=== PATIENT | female | born 1945 | race Caucasian/White ===

== ENCOUNTER 2020-01-03 10:13 | Emergency (ER) | payer MEDICARE, OTHER, SELFPAY ==
--- NOTE | ~2020-01-03 | XR_ITS ---
XR ankle LT min 3V 01/03/2020 11:00 INDICATION: Left ankle pain and swelling PROCEDURE: 4 views left ankle COMPARISON: No prior studies for comparison. FINDINGS: Fracture, dislocation or subluxation is not identified. Ankle mortise intact. There is a sm all degenerative calcaneal enthesophyte. The soft tissues appear within normal limits. No foreign garcía dies are identified. IMPRESSION: 1: NO ACUTE BONE OR JOINT ABNORMALITY IDENTIFIED. Reviewed, dictated and finalized at location B.
[2020-01-03 10:23] VITALS: BP 132/77; PULSE 90; RESP 16; TEMP 36.2; O2SAT 100
--- NOTE | 2020-01-03 11:38 | ED.LOWEXIN ---
HPI - Extremity Injury (Lower) General Chief Complaint: Extremity Injury, Lower Stated Complaint: INJURED L ANKLE Source: patient and RN notes reviewed Limitations: no limitations History of Present Illness HPI Narrative: The patient, previously on several meds, presents with left ankle discomfort. Patient states she has at least a weeklong history of left, lateral ankle pain that is mild, worse with motion, better at rest, and seem to occur when she was moving her disabled . No bleeding, deformity, prior known injury Related Data Home Medications Medication Instructions Recorded Confirmed alprazolam 01/03/20 alprazolam 01/03/20 01/03/20 atorvastatin 01/03/20 budesonide-formoterol [Symbicort] INHALATION 01/03/20 cyclobenzaprine mg 01/03/20 duloxetine mg PO 01/03/20 hydroxyzine HCl 01/03/20 levothyroxine 01/03/20 mirtazapine mg 01/03/20 omeprazole 01/03/20 ropinirole mg 01/03/20 ropinirole mg 01/03/20 trazodone 01/03/20 trimethoprim 01/03/20 Allergies Allergy/AdvReac Type Severity Reaction Status Date / Time clarithromycin Allergy Mild Unknown Verified 01/03/20 10:33 cortisone Allergy Unknown Verified 01/03/20 10:33 pneumococcal vaccine Allergy Unknown Verified 01/03/20 10:33 prednisone Allergy Unknown Verified 01/03/20 10:33 varicella virus vaccine live Allergy Unknown Verified 01/03/20 10:33 FLU VACCINE [id number] (3 YR Allergy Unknown Unknown Uncoded 01/03/20 10:33 +) WARFARIN SODIUM Allergy Unknown Unknown Uncoded 01/03/20 10:33 Review of Systems Review of Systems: Narrative: General/Constitutional: No weight loss,fever Eyes: N0: Redness,discharge Ears/Nose/Throat: No: Epistaxis,ear discharge Respiratory: Denies: Hemoptysis Gastrointestinal: No Vomiting, Bleeding-rectal Skin: No Lumps, eruption Neurologic: No Focal Weakness,Sz Hematologic: Denies: Petechiae/Purpura Psychiatric: No: Suicida ideationl All Other Systems: Reviewed and Negative PMFSH Comments At time of signature, agree with nursing past medical, surgical, social and family history. There is no relevant family history pertinent to the presenting complaint Exam Narrative: Exam Narrative: General Appearance: Well appearing, Conjunctiva clear Ears: External ear normal, Auditory canal normal Nose: Normal nose, Nares clear Mouth/Throat: Normal appearing, Normal lips Supple Respiratory: Airway patent, No respiratory distress Musculoskeletal: Normal strength (mostly intact, limited flexion/extension by pain), Tenderness ( laterally, with mild decreased ROM), Swelling (laterally), Other (no anterior drawer, no collateral laxity, no Achilles tenderness, no fifth MT tenderness) Skin: Warm, Dry, Normal color Neurological: A&O x3,Normal affect Course Vital Signs Vital signs: Vital Signs Temperature 97.1 F L 01/03/20 10:23 Pulse Rate 90 01/03/20 10:23 Respiratory Rate 16 01/03/20 10:23 Blood Pressure 132/77 01/03/20 10:23 Pulse Oximetry 100 01/03/20 10:23 Temperature 97.1 F L 01/03/20 10:23 Pulse Rate 90 01/03/20 10:23 Respiratory Rate 16 01/03/20 10:23 Blood Pressure 132/77 01/03/20 10:23 Pulse Oximetry 100 01/03/20 10:23 Discharge Plan Discharge Clinical Impression: Left ankle sprain Qualifiers: Encounter type: initial encounter Involved ligament of ankle: unspecified ligament Qualified Code(s): S93.402A - Sprain of unspecified ligament of left ankle, initial encounter Degenerative joint disease of ankle Qualifiers: Osteoarthritis type: primary Laterality: left Qualified Code(s): M19.072 - Primary osteoarthritis, left ankle and foot Patient Disposition: Home, Self-Care Condition: Stable Instructions: Ankle Sprain (ED) Prescriptions: New acetaminophen-codeine 120 mg-12 mg /5 mL (5 mL) solution 5 ml PO Q8H PRN (Reason: pain) Qty: 200 RF: 0 No Action alprazolam 1 mg tablet RF: 0 cyclobenzaprine 10 mg tablet RF
== END 2020-01-03 11:25 | disposition home or self-care (01) ==
PROVIDERS: Emergency Provider Emergency Medicine
DX: S93.402A Sprain of unspecified ligament of left ankle, initial encounter (principal); X58.XXXA Exposure to other specified factors, initial encounter; M19.072 Primary osteoarthritis, left ankle and foot; E03.9 Hypothyroidism, unspecified; F41.9 Anxiety disorder, unspecified
CPT/HCPCS: 73610; 99213; G0463

== ENCOUNTER → 2020-04-20 14:45 | Outpatient (CLI) | payer MEDICARE, SELFPAY ==
--- NOTE | ~2020-04-20 | XR_ITS ---
EXAMINATION: XR chest 2V EXAM DATE: 04/20/2020 15:03 INDICATION: Cough. TECHNIQUE: Frontal and lateral projections of the chest obtained and reviewed. There is no prior gen dy for comparison. FINDINGS: The lungs are clear. There are no pleural effusions. The cardiomediastinal silhouette is within normal limits. There is no pneumothorax suspected. Moderate thoracolumbar scoliosis. There a re cholecystectomy clips. IMPRESSION: No acute cardiopulmonary findings. Reviewed, dictated and finalized at location B. [employer]
== END ==
DX: R05 Cough (principal)
CPT/HCPCS: 71046

== ENCOUNTER 2021-02-13 13:22 | Emergency (ER) | payer MEDICARE, OTHER, SELFPAY ==
--- NOTE | ~2021-02-13 | XR_ITS ---
EXAMINATION: XR chest 2V EXAM DATE: 02/13/2021 13:58 INDICATION: Cough and wheezing. TECHNIQUE: Frontal and lateral projections of the chest obtained and reviewed. Comparison is made to prior examination from 04/20/2020. FINDINGS: Moderate amount of right-sided, smaller amount of left basilar acute airspace disease new compared to previous examination, pneumonia and/or edema. Please clinically correlate. There is no pn eumothorax suspected. Cardiomediastinal silhouette is normal. There is moderate thoracolumbar scolio sis. There are cholecystectomy clips. IMPRESSION: Moderate right-sided, small left basilar acute airspace disease. Consider pneumonia and/o r edema. Reviewed, dictated and finalized at location A. 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 Co nsider pneumonia and/or edema.
[2021-02-13 13:35] VITALS: BP 155/56; PULSE 108; RESP 18; TEMP 36.4; O2SAT 91
--- NOTE | 2021-02-13 13:39 | ED.URI ---
HPI - URI/Sore Throat General Chief Complaint: Upper Respiratory Infection Stated Complaint: COUGH/WHEEZING Time Seen by Provider: 02/13/21 13:50 Source: patient and RN notes reviewed Mode of arrival: ambulatory Limitations: no limitations History of Present Illness HPI Narrative: 75-year-old female with history of asthma presents concern for 1 week history of increased cough, shortness of breath, wheezing, body aches, fatigue. She reports she has not been vaccinated for Covid and has had an exposure. Reports she last used her albuterol nebulizer this morning. She denies chest pain, back pain, or diaphoresis MD elicited complaint: cough and sore throat Related Data Home Medications Medication Instructions Recorded Confirmed alprazolam 1 mg PO QID 01/03/20 02/13/21 atorvastatin 80 mg PO DAILY 01/03/20 02/13/21 budesonide-formoterol [Symbicort] 1 puff INHALATION DAILY 01/03/20 02/13/21 duloxetine 60 mg PO DAILY 01/03/20 02/13/21 hydroxyzine HCl 25 mg PO DAILY 01/03/20 02/13/21 levothyroxine 75 mcg PO DAILY 01/03/20 02/13/21 mirtazapine 45 mg PO DAILY 01/03/20 02/13/21 ropinirole 1 mg PO HS 01/03/20 02/13/21 ropinirole 2 mg PO HS 01/03/20 02/13/21 trazodone 50 mg PO HS 01/03/20 02/13/21 pantoprazole 40 mg PO DAILY 02/13/21 02/13/21 Allergies Allergy/AdvReac Type Severity Reaction Status Date / Time clarithromycin Allergy Mild Unknown Verified 02/13/21 13:31 cortisone Allergy Unknown Verified 02/13/21 13:31 pneumococcal vaccine Allergy Unknown Verified 02/13/21 13:31 prednisone Allergy Unknown Verified 02/13/21 13:31 varicella virus vaccine live Allergy Unknown Verified 02/13/21 13:31 FLU VACCINE [id number] (3 YR Allergy Unknown Unknown Uncoded 02/13/21 13:31 +) WARFARIN SODIUM Allergy Unknown Unknown Uncoded 02/13/21 13:31 Review of Systems Review of Systems: CONSTITUTIONAL: Reports malaise fatigue. Denies chills, sweats, or fever. EYES: Denies visual changes, redness, or discharge. ENT: Reports rhinorrhea. Denies congestion, sinus pain, otalgia and sore throat. CARDIOVASCULAR: Denies chest pain, palpitations, or edema. RESPIRATORY: Reports cough, wheezing, dyspnea. GASTROINTESTINAL: Denies abdominal pain, nausea, vomiting, diarrhea SKIN: Denies rash or itching. MUSCULOSKELETAL: Reports myalgia. NEUROLOGIC: Denies headache. All systems reviewed & are unremarkable except as noted in HPI and below PMFSH Comments At time of signature, agree with nursing past medical, surgical, social and family history. There is no relevant family history pertinent to the presenting complaint Exam Narrative: GENERAL: Well-appearing, well-nourished, and in no acute distress. HEAD: Normocephalic EYES: PERRLA, conjunctivae clear ENT: Nares clear, clear discharge. Mucous membranes moist. TM pearly de oliveira with dull light reflex bilaterally; no tragal tenderness. Oropharynx not erythematous without lesions. Tonsils not enlarged and without exudate, no drooling, no hoarseness, no trismus, uvula midline. NECK: Supple. No lymphadenopathy CHEST: Inspiratory and expiratory wheeze, rhonchi throughout, breath sounds diminished on the right. Aeration fair. No rales, or stridor. No respiratory distress, speaks in full sentences. HEART: Regular rate and rhythm. No murmur heard. SKIN: Warm, dry, no rash. NEURO: Alert and oriented x3. PSYCH: Normal mood and affect Course Course Emergency Course: Patient reports she is not allergic to prednisone, however it makes her crazy . Reports doctor has recommended she take a baby dose, which she tolerates. Patient is aware of diagnosis, understands and agrees to treatment plan. Anticipatory guidance given. Patient agrees to follow-up as directed and is aware of reasons to seek care at the emergency department. Portions of this record may have been created with voice recognition software Reevaluation(s) Reevaluation #1: No improvement in Spo2, wheezing, dyspnea after duoneb. Discussed transfer to ED with
[2021-02-13] MEDS: ALBUTEROL SULFATE NEB 2.5 MG/3 ML INH INHALATION (14:05)
[2021-02-13] MEDS: IPRATROPIUM BR 0.02% INH SOLN 0.5 MG/2.5 ML VIAL INHALATION (14:06)
[2021-02-13 14:30] VITALS: PULSE 105; RESP 20; O2SAT 89
[2021-02-13 15:00] VITALS: PULSE 95; RESP 20; O2SAT 90
--- NOTE | 2021-02-13 15:17 | PC.NURSE ---
1515 After report given, Rn returned call to advise family that if patient's condition would deteriorate they should go to nearest facility. I spoke to Georgia Meyer and given advice from RN. She states that I don't think I could get her in an ambulance and I will be taking her.
== END 2021-02-13 15:00 | disposition short-term general hospital (02) ==
PROVIDERS: Emergency Provider Nurse Practitioner
DX: J18.9 Pneumonia, unspecified organism (principal); Z20.822 Contact with and (suspected) exposure to COVID-19
CPT/HCPCS: 71046; 87426; 94640; 99213; C9803; G0463

== ENCOUNTER 2021-07-24 13:33 | Emergency (ER) | payer MEDICARE, OTHER, SELFPAY ==
--- NOTE | ~2021-07-24 | XR_ITS ---
EXAMINATION: XR chest 2V DATE: 07/24/2021 13:52 INDICATION: Shortness of breath TECHNIQUE: PA and lateral views of the chest are obtained. COMPARISON: 02/13/2021 FINDINGS: The lungs are free of acute opacities. There is no pleural effusion or pneumothorax. The ca rdiomediastinal silhouette is normal. There is a large hiatal hernia. There is mild thoracic spondylo sis. Surgical clips in the right upper quadrant are likely from prior cholecystectomy. IMPRESSION: 1. No acute cardiopulmonary abnormality. 2. Large hiatal hernia. Reviewed, dictated and finalized at location A.
[2021-07-24 13:40] VITALS: BP 129/59; PULSE 97; RESP 18; TEMP 36.2; O2SAT 98
--- NOTE | 2021-07-24 14:02 | ED.URI ---
HPI - URI/Sore Throat General Chief Complaint: Upper Respiratory Infection Stated Complaint: SOB Time Seen by Provider: 07/24/21 14:00 Source: patient, family, RN notes reviewed and old records reviewed Mode of arrival: ambulatory Limitations: no limitations History of Present Illness HPI Narrative: 75 year old female accompanied by granddaughter who presents to [facility] care with complaints of long history of asthma and chronic lung problems and pneumonia in the past 6 months requiring hospitalization. Patient reports that she was in the hospital about 3 weeks ago at [facility] with kidney infection and she had small CVA. Patient had home therapist at her home today and patient states that she thought she should come and get checked out.Her PCP called in some antibiotics yesterday but they don't seem to be helping yet, she has been using her nebulizer, temperature of 100F noted one night last week no recent fever, states cough has increased in past 2 weeks. MD elicited complaint: cough Pertinent past history: pneumonia and asthma Related Data Home Medications Medication Instructions Recorded Confirmed alprazolam 1 mg PO QID 01/03/20 02/13/21 atorvastatin 80 mg PO DAILY 01/03/20 02/13/21 budesonide-formoterol [Symbicort] 1 puff INHALATION DAILY 01/03/20 02/13/21 duloxetine 60 mg PO DAILY 01/03/20 02/13/21 hydroxyzine HCl 25 mg PO DAILY 01/03/20 02/13/21 levothyroxine 75 mcg PO DAILY 01/03/20 02/13/21 mirtazapine 45 mg PO DAILY 01/03/20 02/13/21 ropinirole 1 mg PO HS 01/03/20 02/13/21 ropinirole 2 mg PO HS 01/03/20 02/13/21 trazodone 50 mg PO HS 01/03/20 02/13/21 pantoprazole 40 mg PO DAILY 02/13/21 02/13/21 Keppra 07/24/21 Requip 07/24/21 Allergies Allergy/AdvReac Type Severity Reaction Status Date / Time clarithromycin Allergy Mild Unknown Verified 02/13/21 13:31 cortisone Allergy Unknown Verified 02/13/21 13:31 pneumococcal vaccine Allergy Unknown Verified 02/13/21 13:31 prednisone Allergy Unknown Verified 02/13/21 13:31 varicella virus vaccine live Allergy Unknown Verified 02/13/21 13:31 FLU VACCINE [id number] (3 YR Allergy Unknown Unknown Uncoded 02/13/21 13:31 +) WARFARIN SODIUM Allergy Unknown Unknown Uncoded 02/13/21 13:31 Review of Systems Review of Systems: CONSTITUTIONAL: Denies present fever, chills, or sweats. EYES: Denies visual changes, redness, or discharge. ENT: Denies rhinorrhea, congestion, sore throat, or otalgia. CARDIOVASCULAR: Denies chest pain, palpitations, or edema. RESPIRATORY: Positive for cough or dyspnea. GASTROINTESTINAL: Denies abdominal pain, nausea, vomiting, or diarrhea. GENITOURINARY: Denies dysuria or hematuria. SKIN: Denies rash or itching. MUSCULOSKELETAL: Denies back pain, joint pain, or myalgia. NEUROLOGIC: Denies headache, numbness, or weakness. PSYCHIATRIC: Positive for anxiety or depression. 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 Hypercholesterolemia Hypertension Hypothyroidism Seizures Surgical History Surgical History (Updated 07/24/21 @ 17:55 by Clari Pinzon NP) History of bladder surgery sling for bladder History of right hip replacement History of tonsillectomy History of total bilateral knee replacement Hx of appendectomy Hx of cataract surgery bilateral Hx of cholecystectomy Social History Social History (Updated 07/24/21 @ 17:51 by Clari Pinzon NP) Smoking status: Never smoker Alcohol intake: unknown Substance use: never Substance use type: does not use Gender identity (if verbalized by the patient): Female Comments At time of signature, agree with nursing past medical, surgical, social and family history. There is no relevant family history pertinent to the presenting complai
== END 2021-07-24 14:25 | disposition home or self-care (01) ==
PROVIDERS: Emergency Provider Registered Nurse
DX: R05.9 Cough, unspecified (principal); J06.9 Acute upper respiratory infection, unspecified; J45.909 Unspecified asthma, uncomplicated; E78.00 Pure hypercholesterolemia, unspecified; I10 Essential (primary) hypertension; E03.9 Hypothyroidism, unspecified; G40.909 Epilepsy, unspecified, not intractable, without status epilepticus; Z86.73 Personal history of transient ischemic attack (TIA), and cerebral infarction without residual deficits; Z96.653 Presence of artificial knee joint, bilateral; Z96.641 Presence of right artificial hip joint; F41.9 Anxiety disorder, unspecified
CPT/HCPCS: 71046; 99213; G0463

== ENCOUNTER 2023-08-15 12:23 | Emergency (ER) | payer MEDICARE, SELFPAY ==
[2023-08-15 12:43] VITALS: BP 146/78; PULSE 78; RESP 16; TEMP 37.1; O2SAT 99
--- NOTE | 2023-08-15 13:14 | ED.GENADULT ---
HPI - General Adult General Chief complaint: Skin/Abscess/Foreign Body Stated complaint: right arm cut Source: patient Mode of arrival: ambulatory Limitations: no limitations History of Present Illness HPI narrative: Patient presents for evaluation after experiencing a fall 7 days ago. She indicates she was at home and was attempting to sit down but thought the chair was closer to her. She fell to the ground landed on her back. She did not hit her head. No loss of consciousness. She is not anticoagulated. She does skin tear to the right forearm. She has been applying Neosporin. She now reports worsening redness in the right arm. Reports 8/10 pain in the right arm. Denies any concerns for fracture. Over the last 5 days she has had some periods of dizziness and lightheadedness. She cannot identify any aggravating or alleviating factors. She cannot provide me with the longest duration of time in which she each episode occurs but states that symptoms do last at least 1 minute. Symptoms occur her approximately 3 times per day. She denies any chest pain or shortness of breath. Denies any other infectious symptoms. Related Data Home Medications Medication Instructions Recorded Confirmed alprazolam 1 mg tablet 1 mg PO QID 01/03/20 02/13/21 atorvastatin 80 mg tablet 80 mg PO DAILY 01/03/20 02/13/21 budesonide-formoterol HFA 160 1 puff inhalation DAILY 01/03/20 02/13/21 mcg-4.5 mcg/actuation aerosol inhaler (Symbicort) duloxetine 60 mg capsule,delayed 60 mg PO DAILY 01/03/20 02/13/21 release hydroxyzine HCl 25 mg tablet 25 mg PO DAILY 01/03/20 02/13/21 levothyroxine 75 mcg tablet 75 mcg PO DAILY 01/03/20 02/13/21 mirtazapine 45 mg tablet 45 mg PO DAILY 01/03/20 02/13/21 ropinirole 1 mg tablet 1 mg PO HS 01/03/20 02/13/21 ropinirole 2 mg tablet 2 mg PO HS 01/03/20 02/13/21 trazodone 50 mg tablet 50 mg PO HS 01/03/20 02/13/21 pantoprazole 40 mg tablet,delayed 40 mg PO DAILY 02/13/21 02/13/21 release Keppra 07/24/21 Requip 07/24/21 Allergies Allergy/AdvReac Type Severity Reaction Status Date / Time clarithromycin Allergy Mild Unknown Verified 02/13/21 13:31 cortisone Allergy Unknown Verified 02/13/21 13:31 pneumococcal vaccine Allergy Unknown Verified 02/13/21 13:31 prednisone Allergy Unknown Verified 02/13/21 13:31 varicella virus vaccine live Allergy Unknown Verified 02/13/21 13:31 FLU VACCINE [id number] (3 YR Allergy Unknown Unknown Uncoded 02/13/21 13:31 +) WARFARIN SODIUM Allergy Unknown Unknown Uncoded 02/13/21 13:31 Review of Systems Review of Systems: CONSTITUTIONAL: Denies fever, chills, or sweats. EYES: Denies visual changes, redness, or discharge. ENT: Denies rhinorrhea, congestion, sore throat, or otalgia. CARDIOVASCULAR: Denies chest pain, palpitations, or edema. RESPIRATORY: Denies cough or dyspnea. GASTROINTESTINAL: Denies abdominal pain, nausea, vomiting, or diarrhea. GENITOURINARY: Denies dysuria or hematuria. SKIN: Reports a wound to the right forearm. MUSCULOSKELETAL: Reports pain in the right arm. NEUROLOGIC: Reports periods of dizziness and lightheadedness. Denies any headache. PSYCHIATRIC: Denies anxiety or depression. 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
== END 2023-08-15 13:12 | disposition left against medical advice (07) ==
PROVIDERS: Emergency Provider Nurse Practitioner
DX: S50.811A Abrasion of right forearm, initial encounter (principal); W19.XXXA Unspecified fall, initial encounter; R42 Dizziness and giddiness; J45.909 Unspecified asthma, uncomplicated; E78.00 Pure hypercholesterolemia, unspecified; I10 Essential (primary) hypertension; E03.9 Hypothyroidism, unspecified; F41.9 Anxiety disorder, unspecified
CPT/HCPCS: 99213; G0463

== ENCOUNTER 2024-03-10 15:59 | Emergency (ER) | payer MEDICARE, SELFPAY ==
--- NOTE | ~2024-03-10 | XR_ITS ---
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 RESULT: Lines, tubes, and devices: Cholecystectomy clips. Lungs and pleura: Clear. Cardiomediastinal silhouette: Stable. Hiatal hernia. Other: No acute osseous or upper abdominal finding. IMPRESSION: No acute cardiopulmonary process. Reviewed, dictated and finalized at location K. [employer] ESTATE ATTORNEY
[2024-03-10 16:13] VITALS: BP 129/61; PULSE 89; RESP 20; TEMP 36.6; O2SAT 95
--- NOTE | 2024-03-10 17:03 | ED.URI ---
HPI - URI/Sore Throat General Chief Complaint: Upper Respiratory Infection Stated Complaint: cough Time Seen by Provider: 03/10/24 17:03 Source: patient, RN notes reviewed and old records reviewed Mode of arrival: ambulatory Limitations: no limitations History of Present Illness HPI Narrative: 78-year-old female presents to the [facility] with complaints of increased shortness of breath since 4 days. Has been using her Symbicort twice a day. Patient is concerned for RSV, discussed that we are not able to test for here in clinic. Doing x-ray due to patient's wheezing. Patient also reports intermittent chest discomfort, worse with coughing. States that when she lays flat she cannot breathe. Patient reports that she is allergic to prednisone. Treatments prior to arrival: other (Inhaler) Related Data Home Medications ?Medication ?Instructions ?Recorded ?Confirmed ?Last Taken ?Type alprazolam 1 mg tablet 1 mg PO QID 01/03/20 02/13/21 Unknown History atorvastatin 80 mg tablet 80 mg PO DAILY 01/03/20 02/13/21 Unknown History budesonide-formoterol HFA 160 1 puff inhalation DAILY 01/03/20 02/13/21 Unknown History mcg-4.5 mcg/actuation aerosol inhaler (Symbicort) duloxetine 60 mg capsule,delayed 60 mg PO DAILY 01/03/20 02/13/21 Unknown History release hydroxyzine HCl 25 mg tablet 25 mg PO DAILY 01/03/20 02/13/21 Unknown History levothyroxine 75 mcg tablet 75 mcg PO DAILY 01/03/20 02/13/21 Unknown History mirtazapine 45 mg tablet 45 mg PO DAILY 01/03/20 02/13/21 Unknown History ropinirole 1 mg tablet 1 mg PO HS 01/03/20 02/13/21 Unknown History ropinirole 2 mg tablet 2 mg PO HS 01/03/20 02/13/21 Unknown History trazodone 50 mg tablet 50 mg PO HS 01/03/20 02/13/21 Unknown History pantoprazole 40 mg tablet,delayed 40 mg PO DAILY 02/13/21 02/13/21 Unknown History release Keppra 07/24/21 Unknown History Requip 07/24/21 Unknown History Allergies Allergy/AdvReac Type Severity Reaction Status Date / Time clarithromycin Allergy Mild Unknown Verified 03/10/24 17:33 cortisone Allergy Unknown Verified 03/10/24 17:33 pneumococcal vaccine Allergy Unknown Verified 03/10/24 17:33 prednisone Allergy Unknown Verified 03/10/24 17:33 varicella virus vaccine live Allergy Unknown Verified 03/10/24 17:33 FLU VACCINE [id number] (3 YR Allergy Unknown Unknown Uncoded 03/10/24 17:33 +) WARFARIN SODIUM Allergy Unknown Unknown Uncoded 03/10/24 17:33 Review of Systems Review of Systems: All systems reviewed & are unremarkable except as noted in HPI and below Constitutional: Constitutional: Reports no additional constitutional complaints ENT: Reports system reviewed and no additional complaints, except as documented Cardiovascular: Cardiovascular: Reports no additional cardiovascular complaints, Denies chest pain and Denies dyspnea Respiratory: Respiratory: Reports as per HPI, Reports chest congestion, Reports cough, Reports pain with cough, Reports dyspnea and Reports wheezing Musculoskeletal: Musculoskeletal: Reports no additional musculoskeletal complaints Integumentary/Breasts: Skin/Breast: Reports system reviewed and no additional complaints, except as docu PMFSH Past Medical History Medical History Contusion of right arm Anxiety Hypercholesterolemia Seizures Hypothyroidism 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 hospitalized 100 days Asthma Hypertension Surgical History Surgical History History of bladder surgery sling for bladder Hx of cataract surgery bilateral History of total bilateral knee replacement History of right hip replacement Hx of cholecystectomy Hx of appendectomy History of tonsillectomy Social History Social History Smoking status: Never smoker Alcohol intake: unknown Substance use: never Substance use type: does not use Gender identity (if verbalized by the patient): Female Comments At the time of my signature, I reviewed and agree with the nursing past medical, surgical, social, and family history. There is no relevant family history pertinent to the patient complaint. Exam Const: General: cooperative, no acute distress, well developed, alert, ill appearing chronically, uncomfortable and well nourished Nutritional Appearance: well nourished Orientation/consciousness: patient oriented x3 Limitations: no limitations HENMT: Head: normal to inspection Ears: hearing grossly normal bilaterally, external ears normal, TM's normal bilaterally, EAC's normal, mastoids normal and no periauricular adenopathy Face/Nose/Sinus: normal facial exam and face symmetric Face and sinus: normal facial exam and face symmetric Mouth: Yes Normal oral and palatal mucosa present, Yes lip normal, Yes tongue normal and Yes moist mucous membranes Eyes: General: appearance normal, both eyes and all related structures Neck: Neck: normal visual inspection, full ROM, no lymphadenopathy and no meningeal signs Chest: Chest palpation & inspection: normal inspection of the chest Resp: Effort & Inspection: normal respiratory effort, able to speak in complete sentences, Actively coughing and not tachypneic Auscultation: no crackles, no rales, no rhonchi and wheezes expiratory wheezes and scattered wheezes Cardio: Rate: regular rate Other: Trace edema bilateral lower legs Skin: General skin exam: normal color and no rashes or lesions noted Neuro: General: patient oriented x3, gait normal, moves all extremities and no meningeal signs Cognition (Neuro): normal cognition Speech: normal speech Gait exam (Neuro): Normal gait present Extrem: General: normal to inspection, full ROM, capillary refill normal and normal gait Psych: Appearance: grossly normal and well kempt Mental Status: mental status grossly normal Speech and movement: Normal speech and movement present and Clear speech present Affect: normal affect Attitude: cooperative Course Course Level of Care: Express Care Visit Vital Signs Vital signs: Vital Signs Temperature 97.9 F 03/10/24 16:13 Pulse Rate 89 03/10/24 16:13 Respiratory Rate 20 03/10/24 16:13 Blood Pressure 129/61 03/10/24 16:13 Pulse Oximetry 95 03/10/24 16:13 Oxygen Delivery Room Air 03/10/24 16:13 Temperature 97.9 F 03/10/24 16:13 Pulse Rate 89 03/10/24 16:13 Respiratory Rate 20 03/10/24 16:13 Blood Pressure 129/61 03/10/24 16:13 Pulse Oximetry 95 03/10/24 16:13 Oxygen Delivery Room Air 03/10/24 16:13 Reviewed MDM - URI/Sore Throat MDM Narrative Medical decision making narrative: Patient sitting in exam room. Appears uncomfortable, strong cough noted on exam. Chest x-ray negative. Patient is requesting RSV testing which we cannot do. Patient is also complaining of increased shortness of breath especially when lying flat. Discussed concerns for worsening asthma, patient is not able to take prednisone, reports that she is highly allergic to. Discussed signs and symptoms go the emergency room which patient is verbalizing understanding. prescribed doxycycline Discharge instructions reviewed with patient, as well as provided in writing per nursing staff. The instructions also include specific and strict return/GO TO THE ER as well as f/u information. All questions have been answered, and the patient deny any further questions with discharge and discharge plan. Some parts of this dictation were generated by voice recognition software and may contain typographical and/or grammatical inaccuracies. 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 RESULT: Lines, tubes, and devices: Cholecystectomy clips. Lungs and pleura: Clear. Cardiomediastinal silhouette: Stable. Hiatal hernia. Other: No acute osseous or upper abdominal finding. IMPRESSION: No acute cardiopulmonary process. Critical Care Time Critical Care Time Critical Care Time: No Discharge Plan Discharge Clinical Impression: Bronchitis, History of asthma Cough Qualifiers: Cough type: acute Qualified Code(s): R05.1 - Acute cough Patient Disposition: Home, Self-Care Condition: Stable Instructions: Antibiotic Form, Asthma (ED), Acute Bronchitis (ED) Additional Instructions: Take antibiotic as prescribed Use your nebulizer every 4-5 hours while awake Today your chest x-ray did not show signs of a pneumonia. If your symptoms get worse go directly to the emergency room. Patient Language: Niuean Prescriptions: New doxycycline monohydrate 100 mg tablet 100 mg PO BID Qty: 14 0RF No Action alprazolam 1 mg tablet 1 mg PO QID atorvastatin 80 mg tablet 80 mg PO DAILY ropinirole 1 mg tablet 1 mg PO HS trazodone 50 mg tablet 50 mg PO HS levothyroxine 75 mcg tablet 75 mcg PO DAILY ropinirole 2 mg tablet 2 mg PO HS mirtazapine 45 mg tablet 45 mg PO DAILY hydroxyzine HCl 25 mg tablet 25 mg PO DAILY duloxetine 60 mg capsule,delayed release(DR/EC) 60 mg PO DAILY budesonide-formoterol [Symbicort] 160-4.5 mcg/actuation HFA aerosol inhaler 1 puff INHALATION DAILY pantoprazole 40 mg tablet,delayed release (DR/EC) 40 mg PO DAILY Pradip Requip Follow-up/Referrals: UNKNOWN,DOCTOR [Primary Care Provider] - Time of Disposition: 17:40
== END 2024-03-10 17:48 | disposition home or self-care (01) ==
PROVIDERS: Emergency Provider Nurse Practitioner
DX: J40 Bronchitis, not specified as acute or chronic (principal); R05.1 Acute cough; J45.909 Unspecified asthma, uncomplicated; E78.00 Pure hypercholesterolemia, unspecified; E03.9 Hypothyroidism, unspecified; I10 Essential (primary) hypertension; Z96.653 Presence of artificial knee joint, bilateral; Z96.641 Presence of right artificial hip joint; F41.9 Anxiety disorder, unspecified
CPT/HCPCS: 71046; 99213; G0463